=== PATIENT | female | born 1995 | race Caucasian/White ===

== ENCOUNTER → 2017-06-09 | Emergency (ER) | payer OTHER ==
[~2017-06-09] VITALS: Ht 165.1 cm; Wt 74.8 kg
[~2017-06-09] MED LIST: PROMETH-CODEIN 65 ML; ZITHROMAX500 MG
== END | disposition home or self-care (01) ==
LOC: ER 13:13 → EMR PED 14:07 → ER 14:07
DX: B34.9 Viral infection, unspecified (principal); J11.1 Influenza due to unidentified influenza virus with other respiratory manifestations